=== PATIENT | female | born 1990 | race Caucasian/White ===

== ENCOUNTER 2018-11-19 16:10 | Inpatient (IN) | payer OTHER ==
[~2018-11-19] VITALS: Ht 167.6 cm; Wt 88.0 kg
[2018-11-19] MEDS ORDERED: PREN-380 PO (16:29)
[2018-11-19] MEDS ORDERED: FERR325E14 PO (16:29)
[2018-11-19] MEDS ORDERED: CALC500C17 PO (19:28)
[2018-11-19] MEDS ORDERED: OXYTOCIN 20 UNITS in LACTATED RINGERS 1,000 ML IV SCH (21:35)
[2018-11-19] MEDS ORDERED: OXYTOCIN 10 UNITS/ML VIAL IM ONE (21:35)
[2018-11-19] MEDS ORDERED: NALBUPHINE 10 MG/ML AMP IVP PRN (21:35)
[2018-11-19] MEDS ORDERED: AMPICILLIN 2,000 MG in NACL 0.9% MINI-BAG PLUS 100 ML IV ONE (21:35)
[2018-11-19] MEDS ORDERED: PROMETHAZINE 25 MG/ML VIAL IVP PRN (21:35)
[2018-11-19] MEDS ORDERED: METHYLERGONOVINE 0.2 MG/ML AMP IM PRN (21:35)
[2018-11-19] MEDS: LACTATED RINGERS 1,000 ML IV SCH (22:06)
[2018-11-19] MEDS ORDERED: AMPICILLIN 2,000 MG VIAL ONE (22:15)
[2018-11-19] MEDS ORDERED: PROMETHAZINE 25 MG/ML VIAL ONE (22:33)
[2018-11-19] MEDS ORDERED: NALBUPHINE 10 MG/ML AMP ONE (22:33)
[2018-11-19 22:40] LABS: BASOPHILS % (AUTO) 0.1 % (0.0-2.0); EOSINOPHILS # (AUTO) 0.1 K/uL (0-0.4); EOSINOPHILS % (AUTO) 0.6 % (0.0-4.0); HEMATOCRIT 38.6 % (36-48); HEMOGLOBIN 12.9 g/dL (12.0-16.0); LYMPHOCYTES # (AUTO) 1.8 K/uL (2.5-16.5); MEAN CORPUSCULAR HEMOGLOBIN 28 pg (27-31); MEAN CORPUSCULAR HGB CONC 33 g/dL (33-37); MEAN CORPUSCULAR VOLUME 84.3 fL (80-94); MONOCYTES # (AUTO) 0.6 K/uL (0.8-1.0); MONOCYTES % (AUTO) 6.5 % (1.7-9.3); NEUTROPHILS # (AUTO) 6.6 K/uL (1.8-7.7); NEUTROPHILS % (AUTO) 72.8 % (42.2-75.2); PLATELET COUNT (AUTO) 237 K/uL (140-450); RED BLOOD CELL COUNT(AUTO) 4.57 MIL/uL (4.20-5.40); RED CELL DISTRIBUTION WIDTH 13.8 % (11.6-13.7)
[2018-11-19 22:49] LABS: BARBITURATE, URINE NEG. ng/ml (NEG <=200); BENZODIAZEPINE, URINE NEG. ng/mL (NEG <=200); CANNABINOID, URINE NEG. ng/mL (NEG <=50); COCAINE, URINE NEG. ng/mL (NEG <=300); OPIATE, URINE NEG. ng/mL (NEG <=2000); PHENCYCLIDINE SCREEN,URINE NEG. ng/mL (NEG <=25)
[2018-11-19 22:51] LABS: APPEARANCE,URINE CLOUDY (CLEAR); BILIRUBIN,URINE NEGATIVE (NEGATIVE); BLOOD, URINE NEGATIVE (NEGATIVE); COLOR,URINE YELLOW (YELLOW); LEUKOCYTE ESTERASE ,URINE 3+ (NEGATIVE); NITRITE, URINE NEGATIVE (NEGATIVE); UGLUCOSE NEGATIVE (NEGATIVE)
[2018-11-19 22:58] LABS: RBC,URINE 0-5 (RARE) /HPF (0-5); WBC,URINE TOO MANY TO COUNT /HPF (0-5)
[2018-11-20] MEDS: LACTATED RINGERS 1,000 ML IV SCH ×3 (00:35→09:58)
[2018-11-20] MEDS ORDERED: BUPIVACAINE 0.125%/NS PREMIX 250 ML ONE (00:53)
[2018-11-20 01:29] LABS: APPEARANCE,URINE CLEAR (CLEAR); BILIRUBIN,URINE NEGATIVE (NEGATIVE); BLOOD, URINE TRACE-I (NEGATIVE); COLOR,URINE YELLOW (YELLOW); LEUKOCYTE ESTERASE ,URINE NEGATIVE (NEGATIVE); NITRITE, URINE NEGATIVE (NEGATIVE); UGLUCOSE NEGATIVE (NEGATIVE)
[2018-11-20 01:30] LABS: RBC,URINE 0-5 (RARE) /HPF (0-5); WBC,URINE 0-5 (RARE) /HPF (0-5)
[2018-11-20] MEDS ORDERED: AMPICILLIN 1,000 MG VIAL ONE ×3 (01:46→09:47)
[2018-11-20] MEDS: AMPICILLIN 1,000 MG in NACL 0.9% MINI-BAG PLUS 50 ML IV SCH ×3 (02:00→09:59)
[2018-11-20] MEDS ORDERED: INFLUENZA VIRUS VACCINE QUAD 0.5 ML SYR IMVAC PRN (06:30)
[2018-11-20] MEDS ORDERED: OXYTOCIN 20 UNITS/LR PREMIX 1,000 ML IV ONE (08:09)
--- NOTE | 2018-11-20 08:11 | NUR ---
PATIENT HAS BEEN SCREENED AND CATEGORIZED LOW NUTRITION RISK. PATIENT WILL BE SEEN WITHIN 7 DAYS OF ADMISSION. 11/26/[address]
[2018-11-20] MEDS ORDERED: OXYTOCIN 20 UNITS in LACTATED RINGERS 1,000 ML IV SCH (19:56)
[2018-11-20] MEDS ORDERED: ACETAMINOPHEN 325 MG TAB PO PRN (20:00)
[2018-11-20] MEDS ORDERED: MEASLES, MUMPS, AND RUBELLA 1 VIAL SQVAC PRN (20:00)
[2018-11-20] MEDS: IBUPROFEN 600 MG TAB PO PRN (20:30)
[2018-11-21] MEDS: BISACODYL 5 MG TABEC PO PRN (09:35)
[2018-11-21 10:24] LABS: BASOPHILS % (AUTO) 0.1 % (0.0-2.0); EOSINOPHILS # (AUTO) 0.1 K/uL (0-0.4); EOSINOPHILS % (AUTO) 0.8 % (0.0-4.0); HEMATOCRIT 38.8 % (36-48); HEMOGLOBIN 12.8 g/dL (12.0-16.0); LYMPHOCYTES # (AUTO) 1.9 K/uL (2.5-16.5); LYMPHOCYTES % (AUTO) 19.2 % (20.5-51.1); MEAN CORPUSCULAR HEMOGLOBIN 28 pg (27-31); MEAN CORPUSCULAR HGB CONC 33 g/dL (33-37); MEAN CORPUSCULAR VOLUME 84.8 fL (80-94); MONOCYTES # (AUTO) 0.5 K/uL (0.8-1.0); MONOCYTES % (AUTO) 5.4 % (1.7-9.3); NEUTROPHILS # (AUTO) 7.4 K/uL (1.8-7.7); NEUTROPHILS % (AUTO) 74.5 % (42.2-75.2); PLATELET COUNT (AUTO) 221 K/uL (140-450); RED BLOOD CELL COUNT(AUTO) 4.58 MIL/uL (4.20-5.40); RED CELL DISTRIBUTION WIDTH 14.1 % (11.6-13.7)
[2018-11-21 16:06] LABS: RAPID PLASMA REAGIN NON-REACTIVE (Non Reactiv)
[2018-11-21] MEDS: IBUPROFEN 600 MG TAB PO PRN (19:39)
[2018-11-22] MEDS: IBUPROFEN 600 MG TAB PO PRN (04:32)
[2018-11-22] MEDS: BISACODYL 5 MG TABEC PO PRN (10:06)
[2018-11-22] MEDS ORDERED: ACET-9800 PO (11:09)
[2018-11-22] MEDS ORDERED: FERR325E14 PO (11:10)
== END 2018-11-22 13:35 | disposition home or self-care (01) | DRG 560 ==
LOC: MLD 16:10 → OBSVTOIN 21:30 → MFCC 11-20 18:15
PROVIDERS: ADMIT Obstetrics & Gynecology; ATTEND Obstetrics & Gynecology
PROC: 10D07Z6 Extraction of Products of Conception, Vacuum, Via Natural or Artificial Opening (ICD-10-PCS; principal; 2018-11-20)
PROC: 10907ZC Drainage of Amniotic Fluid, Therapeutic from Products of Conception, Via Natural or Artificial Opening (ICD-10-PCS; 2018-11-20)
PROC: 00HU33Z Insertion of Infusion Device into Spinal Canal, Percutaneous Approach (ICD-10-PCS; 2018-11-20)
PROC: 3E0R3BZ Introduction of Anesthetic Agent into Spinal Canal, Percutaneous Approach (ICD-10-PCS; 2018-11-20)
PROC: 3E0234Z Introduction of Serum, Toxoid and Vaccine into Muscle, Percutaneous Approach (ICD-10-PCS; 2018-11-21)
PROC: 3E02340 Introduction of Influenza Vaccine into Muscle, Percutaneous Approach (ICD-10-PCS; 2018-11-21)
DX: O76 Abnormality in fetal heart rate and rhythm complicating labor and delivery (principal); Z23 Encounter for immunization; Z37.0 Single live birth; Z3A.39 39 weeks gestation of pregnancy
CPT/HCPCS: G0378 ×5; 36415; 51702; 59025; 76815; 80305; 81001; 85025; 86592; 86886; 86900; 86901; 87086; 90658; 90715; J0290; J2300; J2550; J2590; J3490; J7120; Q0092